=== PATIENT | male | born 1975 | race Caucasian/White ===

== ENCOUNTER 2017-08-14 22:08 | Emergency (ER) | payer OTHER ==
[2017-08-14 22:29] VITALS: BP 140/85; PULSE 80; RESP 18; TEMP 98.5; O2SAT 98; BMI 40.1
[2017-08-14] MEDS ORDERED: HYDROmorphone 2 mg/ml ISec IM STA (23:01)
[2017-08-14] MEDS ORDERED: Sodium Chloride 0.9% 1,000 ML IV STA (23:03)
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
[2017-08-14] MEDS ORDERED: Morphine 4 mg/ml ISec SC STA (23:13)
[2017-08-15] MEDS ORDERED: TDAP Vaccine 0.5 mL Syr IM ONE (01:58)
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
== END 2017-08-15 02:20 | disposition home or self-care (01) ==
LOC: ED 22:08
DX: M79.604 Pain in right leg (principal); M79.602 Pain in left arm; V29.49XA Motorcycle driver injured in collision with other motor vehicles in traffic accident, initial encounter; Y92.410 Unspecified street and highway as the place of occurrence of the external cause; Z23 Encounter for immunization
CPT/HCPCS: 73030; 73060; 73080; 73560; 73590; 90471; 90715; 96372; 99285; J2270

== ENCOUNTER 2018-02-02 02:17 | Inpatient (IN) | payer OTHER ==
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
[2018-02-02 02:50] LABS: HEMOGLOBIN 11.9 g/dL (14.0-18.0); MEAN CELL VOLUME 74.9 fl (80.0-105.0); MEAN CORPUSCULAR HEMOGLOBIN 23.7 pg (25.0-35.0); MEAN CORPUSCULAR HGB CONC 31.6 g/dl (31.0-37.0); MEAN PLATELET VOLUME 10.5 fl (7.0-11.0); RBC 5.02 10^6/uL (3.5-6.1); RED CELL DISTRIBUTION WIDTH 17.1 % (11.5-14.5)
[2018-02-02 02:57] LABS: BLOOD UREA NITROGEN 14 mg/dL (7-21); CALCIUM 8.7 mg/dL (8.4-10.5); GFR NON-AFRICAN AMERICAN > 60
[2018-02-02] MEDS ORDERED: DiphenhydrAMINE 50 mg/ml Inj IVP ONE (02:58)
[2018-02-02 03:04] LABS: ALBUMIN 4.2 g/dL (3.0-4.8); ALT/SGPT 24 U/L (7-56); AST/SGOT 42 U/L (17-59)
[2018-02-02] MEDS ORDERED: Morphine 4 mg/ml ISec IVP STA (03:10)
[2018-02-02 03:14] LABS: FREE T4 0.97 ng/dL (0.78-2.19)
[2018-02-02] MEDS: diltiaZEM IVPB 100mg in NS 100 ML IV PRN ×2 (03:23→17:34)
[2018-02-02 03:35] LABS: TROPONIN I 0.01 ng/mL
[2018-02-02] MEDS ORDERED: Morphine 2 mg/ml ISec IVP STA ×2 (05:00→19:23)
[2018-02-02 05:55] LABS: INR 0.97; PARTIAL THROMBOPLASTIN TIME 25.5 Seconds (25.1-36.5); PROTHROMBIN TIME 11.2 SECONDS (9.4-12.5)
[2018-02-02] MEDS ORDERED: Heparin25000 units/250ml 1/2NS 25,000 UNITS/250 ML BAG IV PRN ×2 (06:29→12:07)
[2018-02-02] MEDS ORDERED: Oxycodone/Acetaminophen 5/325 mg Tab PO STA (08:41)
--- NOTE | 2018-02-02 09:16 | CARD ---
APPROVED REPORT Date of service: 02/02/2018 EKG Measurement Heart [id number] <Conclusion> Atrial fibrillation The rate is slower
--- NOTE | 2018-02-02 09:18 | CARD ---
APPROVED REPORT Date of service: 02/02/2018 EKG Measurement Heart [id number] <Conclusion> Atrial fibrillation with rapid ventricular response NSSTW changes
[2018-02-02 09:56] LABS: HDL CHOLESTEROL 42 mg/dL (29-60)
[2018-02-02 10:07] LABS: LDL CHOLESTEROL 80 mg/dL (0-129)
[2018-02-02 10:08] LABS: TROPONIN I < 0.01 ng/mL
[2018-02-02] MEDS: Nitroglycerin 2% Ointment Foilpak UD TOP SCH ×3 (11:05→17:40)
[2018-02-02] MEDS: NITROGLYCERIN 0.3 MG/HR TD SCH (11:07)
[2018-02-02] MEDS: Oxycodone/Acetaminophen 5/325 mg Tab PO PRN ×2 (13:22→22:57)
[2018-02-02] MEDS: Heparin25000 units/250ml 1/2NS 25,000 UNITS/250 ML BAG IV PRN ×2 (13:26→18:54)
--- NOTE | 2018-02-02 13:33 | RAD ---
Date of service: 02/02/2018 HISTORY: fever COMPARISON: No prior. FINDINGS: LUNGS: No active pulmonary disease. PLEURA: No significant pleural effusion identified, no pneumothorax apparent. CARDIOVASCULAR: Normal. OSSEOUS STRUCTURES: No significant abnormalities. VISUALIZED UPPER ABDOMEN: Normal. OTHER FINDINGS: None. IMPRESSION: No active disease.
[2018-02-02] MEDS ORDERED: Influenza Vaccine 60 mcg/0.5 mL SYR (4YR UP) IM ONE (15:06)
[2018-02-02] MEDS ORDERED: Pneumococcal 23-Valent Vaccine IM ONE (15:06)
[2018-02-02 15:07] VITALS: BMI 37.0
[2018-02-02] MEDS ORDERED: TraMADol/Apap 37.5/325 mg Tab PO PRN ×2 (17:21→19:17)
[2018-02-02 18:26] LABS: TROPONIN I < 0.01 ng/mL
[2018-02-02 22:35] LABS: HEMOGLOBIN 10.7 g/dL (14.0-18.0); MEAN CELL VOLUME 75.2 fl (80.0-105.0); MEAN CORPUSCULAR HEMOGLOBIN 22.9 pg (25.0-35.0); MEAN CORPUSCULAR HGB CONC 30.5 g/dl (31.0-37.0); MEAN PLATELET VOLUME 9.9 fl (7.0-11.0); RBC 4.67 10^6/uL (3.5-6.1); RED CELL DISTRIBUTION WIDTH 17.1 % (11.5-14.5); WHITE BLOOD COUNT 7.3 10^3/ul (4.5-11.0)
[2018-02-02 23:05] LABS: ALB/GLOB RATIO 1.1 (1.1-1.8); ALBUMIN 3.7 g/dL (3.0-4.8); ALT/SGPT 17 U/L (7-56); AST/SGOT 21 U/L (17-59); BLOOD UREA NITROGEN 16 mg/dL (7-21); CALCIUM 8.2 mg/dL (8.4-10.5); GFR NON-AFRICAN AMERICAN > 60
[2018-02-03] MEDS: diltiaZEM IVPB 100mg in NS 100 ML IV PRN ×2 (00:11→05:23)
[2018-02-03] MEDS: Nitroglycerin 2% Ointment Foilpak UD TOP SCH ×2 (00:11→05:23)
[2018-02-03 00:21] LABS: PH,URINE 5.5 (4.7-8.0); URINE BILIRUBIN NEGATIVE (NEGATIVE); URINE BLOOD TRACE-INTACT (NEGATIVE); URINE GLUCOSE (UA) NEGATIVE (NEGATIVE); URINE LEUKOCYTE ESTERASE NEGATIVE Leu/uL (NEGATIVE); URINE PROTEIN NEGATIVE mg/dL (<30 mg/dL); URINE UROBILINOGEN 0.2 E.U./dL (<1 E.U./dL)
[2018-02-03 00:30] LABS: URINE APPEARANCE CLEAR (CLEAR)
[2018-02-03 01:13] LABS: BARBITURATES, UR NEGATIVE (NEGATIVE); BENZODIAZEPINES, UR NEGATIVE (NEGATIVE); OPIATES, UR POSITIVE (NEGATIVE); PHENCYCLIDINE, UR NEGATIVE (NEGATIVE)
--- NOTE | 2018-02-03 08:38 | CARD ---
APPROVED REPORT Date of service: 02/02/2018 EXAM: Two-dimensional and M-mode echocardiogram with Doppler and color Doppler. Other Information Quality : AverageRhythm : INDICATION CP 2D DIMENSIONS Left Atrium (2D)4.0 (1.6-4.0cm)IVSd1.2 (0.7-1.1cm) LVDd4.5 (3.9-5.9cm)PWd1.2 (0.7-1.1cm) LVDs3.3 (2.5-4.0cm)FS (%) 22.5 % LVEF (%)55.0 (>50%) M-Mode DIMENSIONS Aortic Root3.70 (2.2-3.7cm)Aortic Cusp Exc.1.90 (1.5-2.0cm) Aortic Valve AoV Peak Thzuvcko159.0cm/s Mitral Valve MV E Thxnufta42.2cm/sE/A ratio0.0 TDI Lateral E' Peak V13.50cm/sE/Lateral E'6.3E/Medial E'0.0 Tricuspid Valve TR Peak Fvmvcohh389zv/sRAP [id number] Peak Gr.28mmHg [id number] LEFT VENTRICLE The left ventricle is normal size. There is normal left ventricular wall thickness. The left ventricular function is normal. The left ventricular ejection fraction is within the normal range. There is normal LV segmental wall motion. RIGHT VENTRICLE The right ventricle is normal size. ATRIA The left atrium size is normal. The right atrium size is normal. The interatrial septum is intact with no evidence for an atrial septal defect. AORTIC VALVE The aortic valve is normal in structure. MITRAL VALVE The mitral valve is normal in structure. TRICUSPID VALVE The tricuspid valve is normal in structure. There is trace tricuspid regurgitation. PULMONIC VALVE The pulmonary valve is normal in structure. There is trace pulmonic valvular regurgitation. GREAT VESSELS The aortic root is normal in size. PERICARDIAL EFFUSION There is no pericardial effusion. <Conclusion> The left ventricle is normal size. There is normal left ventricular wall thickness. The left ventricular function is normal.
--- NOTE | 2018-02-03 09:16 | CARD ---
APPROVED REPORT Date of service: 02/02/2018 EKG Measurement Heart [id number] <Conclusion> Atrial fibrillation with moderate V. rate No change
[2018-02-03] MEDS: NITROGLYCERIN 0.3 MG/HR TD SCH ×2 (09:46→10:11)
[2018-02-03] MEDS: Heparin25000 units/250ml 1/2NS 25,000 UNITS/250 ML BAG IV PRN (09:51)
[2018-02-03 10:32] LABS: IRON 27 ug/dL (45-180)
[2018-02-03 10:42] LABS: % IRON SATURATION 7 % (20-55); TOTAL IRON BINDING CAPACITY 364 ug/dL (261-462)
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
--- NOTE | 2018-02-03 14:30 | US ---
Date of service: 02/03/2018 PROCEDURE: Ultrasound of the Kidneys HISTORY: microhematuria COMPARISON: None available. TECHNIQUE: Sonogram of the kidneys. FINDINGS: RIGHT KIDNEY: Measures: 5.3 x 11.2 cm. Normal in size, contour and echogenicity. No stone, solid mass lesion or hydronephrosis visualized. LEFT KIDNEY: Measures: 5.5 x 12.3 cm. Normal in size, contour and echogenicity. No stone, solid mass lesion or hydronephrosis visualized. OTHER FINDINGS: None. IMPRESSION: Unremarkable renal sonogram.
[2018-02-03 17:00] LABS: FERRITIN 6.6 ng/mL
[2018-02-03 17:31] LABS: FOLATE 13.9 ng/mL
[2018-02-03 18:17] VITALS: RESP 18
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
[2018-02-03] MEDS: Oxycodone/Acetaminophen 5/325 mg Tab PO PRN (22:00)
[2018-02-04] MEDS: Heparin25000 units/250ml 1/2NS 25,000 UNITS/250 ML BAG IV PRN (01:33)
[2018-02-04 05:46] VITALS: PULSE 77; TEMP 98.1; O2SAT 97
[2018-02-04 07:24] VITALS: BP 130/75
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
--- NOTE | 2018-02-04 09:52 | CARD ---
APPROVED REPORT Date of service: 02/03/2018 EKG Measurement Heart [id number] <Conclusion> Normal sinus rhythm, new Normal ECG
--- NOTE | 2018-02-04 14:01 | CARD ---
APPROVED REPORT Date of service: 02/04/2018 EKG Measurement Heart [id number] <Conclusion> Normal sinus rhythm Normal ECG
--- NOTE | 2018-02-04 18:59 | CARD ---
APPROVED REPORT Date of service: 02/04/2018 Protocol: ANDRÉS Test Type: Sestamibi Stress Test Attending Physician: Dr. Jean Romero Referring Physician: Dr. Jean Romero Test Indications: PAF, HBP. Height:6 ft 5 in Weight:300lbs Medications: tylenol, cardizem, benadryl, pepcid, heparin, lopressor,nitroglycerin, zofran percocet, tramadol Medical History: 42 y/o male with PAH, HBP. Target HR: 179 bpm Resting ECG: RSR Resting Heart Rate: 80 bpm Resting Blood Pressure: 132/86mmHg Submaximum (85%): 152 bpm POST EXERCISE Reason for Termination: Fatigue and dyspnea Target HR: No Max HR: 139 bpm 83% of Maximum Predicted HR: 179 bpm Exercise duration: 09:18 min:sec, 4 Stage Exercise capacity: 10.4METs Max Blood Pressure: 162/100mmHg Blood Pressure response to exercise: Normal Heart Rate response to exercise: 83% Chest Pain: No, None Angina index: 0 Arrhythmia: No, None ST Change: No, None Deviation: 0 mm INTERPRETATION Stress EKG Conclusion: Treadmill stress test which was negative for chest pain, ischemia and arrhythmia at 83% PMHR. Mildly reduced functional capacity. Nuclear scans pending. Signed by Jean Romero Electronically Approved: 02/04/2018 11:11:22 EXAM: Myocardial Perfusion REST/STRESS Stress Test Type: Exercise Treadmill Imaging Protocol Rest Spect myocardial perfusion imaging was performed in supine position 45 minutes following the injection of 10.3 mCi of Tc-99 Myoview. At peak stress, the patient was injected intravenously with 30.5mCi of Tc-99 tetrofosmin after an exercise time of 9 minutes and 18 seconds. Gated Stress Spect was performed 65 minutes after intravenous Tc-99 Myoview injection. The images were gated to evaluate regional wall motion and calculate ventricular ejection fraction.Images were reconstructed using backfilter projection method in short horizontal and verticle long axis. Spect slices were generated. LV Perfusion The quality of the study is good. The left ventricle is mildly enlarged in size with thickened myocardium. The right ventricle is unremarkable. The lung uptake is within normal limits. The distribution of tracer reveals normal uptake pattern throughout the LV myocardium on the stress study. The rest myocardial perfusion study shows no significant change. Wall Motion Wall motion study shows good contractility of the left ventricle. LVEF = 62%. Conclusion 1. Normal SPECT myocardial perfusion study. 2. Normal gated wall motion of the left ventricle.
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
--- NOTE | 2018-02-06 01:04 | DS ---
DATE: 02/04/2018 HISTORY: The patient left against medical advice on 02/04/2018. This 42-year-old male who presented to the [facility] ER complaining of chest pain and palpitations in the setting of recurrent rapid atrial fibrillation, was admitted to the Cardiac Unit, placed on IV heparin and also given Zestril for chronic hypertension and was consulted by Dr. Jean Romero from Cardiology. The patient had a Lexiscan stress test completed on the morning of 02/04/2018 and then became agitated and told his nurse, Etelvina Mcmillan, registered nurse, that he was signing AMA. He instructed her to remove his IV Hep-Lock. He was fully aware he was not cleared for discharge and verbally requested to sign AMA. A house doctor was called. His girlfriend was present at bedside with the patient and the patient left [facility] against medical advice. It should be noted that the patient did convert into a normal sinus rhythm after the institution of oral sotalol yesterday. He was in the process of completing a stress test and then was going to be considered for a transesophageal echocardiography to rule out any intracardiac thrombi, at which point, a decision would be made on proper anticoagulation for this patient. Since he left AMA, none of this was accomplished and the patient was advised of the risk of increased morbidity and mortality given the nature of his actions. He walked off the unit AMA. Anya Rodriguez MD [facility]
== END 2018-02-04 12:46 | disposition left against medical advice (07) | DRG 310 ==
LOC: ED 02:17 → ERH 05:40 → 2RSO 08:26
PROVIDERS: ADMIT Internal Medicine; ATTEND Internal Medicine
DX: I48.0 Paroxysmal atrial fibrillation (principal); I10 Essential (primary) hypertension; D50.9 Iron deficiency anemia, unspecified; D63.8 Anemia in other chronic diseases classified elsewhere; R31.29 Other microscopic hematuria; E66.9 Obesity, unspecified; Z68.37 Body mass index [BMI] 37.0-37.9, adult; Z87.891 Personal history of nicotine dependence; Z90.3 Acquired absence of stomach [part of]; Z90.81 Acquired absence of spleen